=== PATIENT | male | born 1990 | race Caucasian/White ===

== ENCOUNTER 2017-12-23 07:05 | Emergency (ER) | payer OTHER ==
[2017-12-23 07:24] VITALS: BP 151/90
[2017-12-23] MEDS ORDERED: 0.9 % SODIUM CHLORIDE 1,000 ML IV ONE ×2 (07:33→07:48)
[2017-12-23] MEDS ORDERED: PROPARACAINE HCL 0.5% OPTH OP ONE ×2 (07:34→07:50)
--- NOTE | 2017-12-23 07:43 | ED Physician Documentation ---
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 He was using bleach this am and splashed some bleach into his L eye. Pt immediately washed his eye with water for 10 minutes. His eye was washed again for 10 min after his arrival in ER. Pt rates pain 4/10 and says that his vision has been "a little blurry.") - ROS CONST: no problems EYES/ENT: other (bleach in L eye) CVS/RESP: none GI/: none MS/SKIN/LYMPH: none - PAST HX Past History: none Allergies/Adverse Reactions: Allergies Allergy/AdvReac Type Severity Reaction Status Date / Time No Known Allergies Allergy Verified 12/23/17 07:22 Home Medications: Ambulatory Orders Medication Instructions Recorded NK [NK] 12/23/17 - SOCIAL HX Smoking History: non-smoker - FAMILY HX Family History: No - VITAL SIGNS Vital Signs: Vital Signs Temp Pulse Resp BP Pulse Ox 98.2 F 95 H 15 151/90 98 12/23/17 07:05 12/23/17 07:05 12/23/17 07:05 12/23/17 07:05 12/23/17 07:05 - REVIEWED ASSESSMENTS Nursing Assessment Reviewed: Yes Vitals Reviewed: Yes Progress - Progress Progress: Mickey Lens 1 L NS Proparicaine 2 gtts L eye Tdap 0.5 ml IM Rx Polytrim Ophthalmic drops. One or two drops in Left eye every 4 to 6 hrs for 7 days. Maximum 6 drops/day. Rx Peterson (5/325). Take one or two by mouth every 4 to 6 hrs as needed for moderate to severe pain. If symptoms persist or you have concerns, follow up at [facility] (walk- in Clinic) at [facility]. ED Results Lab/Radiology - Orders Orders: ED Orders Category Date Time Status 0.9 % Sodium Chloride [Normal Saline] 1,000 ml Med 12/23/17 07:33 Discontinued IV .STK-MED Proparacaine HCl [Ophthaine] Med 12/23/17 07:34 Discontinued 225 drop OP .STK-MED ONE General Adult Physical Exam - PHYSICAL EXAM GENERAL APPEARANCE: mild distress EENT: pharynx normal, other (Fluorescein exam wnl, vision 20/40 L eye) RESPIRATORY: no resp distress, chest non-tender, breath sounds normal CVS: reg rate & rhythm, heart sounds normal ABDOMEN: soft, no organomegaly, normal bowel sounds BACK: normal inspection, no CVA tenderness SKIN: warm/dry, normal color EXTREMITIES: non-tender, normal range of motion, no evidence of injury, no edema NEURO: oriented X3, motor nml, sensation nml Discharge Clincal Impression: chemical injury (bleach) L eye Referrals: Primary Doctor,No [Primary Care Provider] - Condition: Good Disposition: 01 HOME, SELF-CARE Decision to Admit: NO Decision Time: 08:06
[2017-12-23] MEDS ORDERED: DIPH,PERTUSS(ACELL),TET VAC/PF 0.5 ML DISP.SYRIN IM ONE (07:45)
== END 2017-12-23 08:07 | disposition home or self-care (01) ==
LOC: ED 07:05
DX: S05.8X2A Other injuries of left eye and orbit, initial encounter (principal); T54.91XA Toxic effect of unspecified corrosive substance, accidental (unintentional), initial encounter; Y92.89 Other specified places as the place of occurrence of the external cause; Y99.0 Civilian activity done for income or pay; Z23 Encounter for immunization
CPT/HCPCS: 90471; 96365; 99282; J7030